=== PATIENT | female | born 1950 | race Caucasian/White ===

== ENCOUNTER → 2017-10-10 | Outpatient (CLI) | payer BC ==
[~2017-10-10] MED LIST: ALEVE220 M1 PO; ALEVE220 MG PO; CALTRATE PLUS1 EACH OR; CENTRUM TABLET1 TAB OR; CO Q-10100 MG; GLUCOPHAGE XR500 MG OR; GLUCOSAMINE S1000 M2 OR; GLYBURIDE 5 MG T5 MG; HUMALOG100 UNIT/2; IBUPROFEN 200200 M1; LEVEMIR100 UNIT/1 SUBQ; LIPITOR10 MG; LISINOPRIL10 MG OR; MEGA RED OR; VITAMIN D1000 UNI1
== END ==
LOC: RAD 10-03 04:06
DX: Z12.31 Encounter for screening mammogram for malignant neoplasm of breast (principal)

== ENCOUNTER → 2018-10-16 | Outpatient (CLI) | payer OTHER | LOC: RAD 10-15 02:00 | DX: Z12.31 Encounter for screening mammogram for malignant neoplasm of breast (principal) ==

== ENCOUNTER → 2019-08-10 | Outpatient (CLI) | payer OTHER | LOC: CAT 11:24 | DX: Z13.6 Encounter for screening for cardiovascular disorders (principal); E78.00 Pure hypercholesterolemia, unspecified; I25.10 Atherosclerotic heart disease of native coronary artery without angina pectoris ==

== ENCOUNTER → 2019-11-10 | Outpatient (CLI) | payer OTHER | LOC: RAD 08:41 | DX: Z12.31 Encounter for screening mammogram for malignant neoplasm of breast (principal) ==

== ENCOUNTER → 2019-12-16 | Outpatient (CLI) | payer OTHER | LOC: SJCVCIMAG 07:52 | DX: I25.10 Atherosclerotic heart disease of native coronary artery without angina pectoris (principal); E11.9 Type 2 diabetes mellitus without complications; E78.5 Hyperlipidemia, unspecified; Z79.4 Long term (current) use of insulin ==

== ENCOUNTER → 2020-11-15 | Outpatient (CLI) | payer OTHER | LOC: RAD 10:03 | PROVIDERS: ATTEND Neuromusculoskeletal Medicine & OMM | DX: Z12.31 Encounter for screening mammogram for malignant neoplasm of breast (principal) ==